=== PATIENT | female | born 1985 | race African-American/Black ===

== ENCOUNTER 2020-09-21 10:33 | Emergency (ER) | payer OTHER ==
[~2020-09-21 10:33] MED LIST: A/B OTIC OT; AMOXICILLIN875 MG OR; BACTROBAN2 % EX; CEPHALEXIN500 MG OR; LORTAB 5 OR; PREDNISONE50 MG PO; PROVENTIL0.083 % IN
[2020-09-21 12:01] VITALS: BP 108/74
[2020-09-21] MEDS ORDERED: ZPAK PO (12:48)
== END 2020-09-21 12:50 | disposition home or self-care (01) | DRG 179 ==
LOC: ED 10:33
DX: U07.1 COVID-19 (principal); J45.909 Unspecified asthma, uncomplicated; F17.200 Nicotine dependence, unspecified, uncomplicated

== ENCOUNTER 2020-09-29 12:02 | Emergency (ER) | payer OTHER ==
[~2020-09-29 12:02] MED LIST changes: +ZPAK PO
[2020-09-29 13:14] LABS: HEMATOCRIT 42.5 % (37.0-47.0); HEMOGLOBIN 13.5 g/dl (12.0-16.0); MEAN CELL VOLUME 97.7 fL CALC (80.0-100.0); MEAN CORPUSCULAR HGB CONC 31.8 g/dL CAL (32.0-36.0); NEUT# 1.51 thou/uL (2.00-7.15); RED BLOOD COUNT 4.35 mill/uL (4.20-5.60); RED CELL DISTRI WIDTH 11.8 % (11.5-15.5)
[2020-09-29 13:34] LABS: ALKALINE PHOSPHATASE 72 u/l (38-126); AMYLASE 86 u/l (30-110); BILIRUBIN, TOTAL 0.4 mg/dL (0.0-1.4); BUN 10 mg/dL (7-17); BUN/CREATININE RATIO 15 (12-20 (CALC)); CARBON DIOXIDE 23 mmol/l (22-30); CHLORIDE 104 mmol/l (95-108); CREATININE 0.7 mg/dL (0.5-1.0); GFR > 60 ML/MIN (>=60 (CALC)); GFR FOR AFR.AMER. > 60 ML/MIN (>=60 (CALC)); LIPASE 64 u/l (23-300); POTASSIUM 3.5 mmol/l (3.5-5.1); SGOT/AST 37 u/l (14-36); TOTAL PROTEIN 7.5 g/dL (6.3-8.2)
[2020-09-29 13:35] LABS: ALBUMIN 3.9 g/dL (3.2-5.0); ANION GAP 14 (6-22 (CALC)); SODIUM 137 mmol/l (137-146)
[2020-09-29 13:37] LABS: URINE BLOOD DIPSTICK NEGATIVE (NEGATIVE); URINE COLOR YELLOW; URINE GLUCOSE - DIPSTICK NEGATIVE (NEGATIVE); URINE KETONE TRACE mg/dL (NEGATIVE); URINE LEUK ESTERASE NEGATIVE (NEGATIVE); URINE PH 6.5 (4.5-8.0); URINE PROTEIN - DIPSTICK 100 mg/dL (NEG-TRACE); URINE SPECIFIC GRAVITY >=1.030
[2020-09-29 13:40] LABS: URINE BILIRUBIN - DIPSTICK SMALL (NEGATIVE); URINE NITRITE - DIPSTICK NEGATIVE (Negative)
[2020-09-29 13:47] LABS: URINE BACTERIA FEW hpf; URINE MUCUS MODERATE hpf (NONE-FEW); URINE SQUAMOUS EPITHELIAL CELL FEW EPI/hpf (0-FEW)
[2020-09-29] MEDS ORDERED: KEFLEX500 MG PO (14:01)
[2020-09-29] MEDS ORDERED: MEDDOSEPAK PO (14:26)
[2020-09-29 14:33] VITALS: BP 115/57
== END 2020-09-29 15:52 | disposition home or self-care (01) | DRG 178 ==
LOC: ED 12:02
PROVIDERS: Emergency Medicine
DX: U07.1 COVID-19 (principal); N39.0 Urinary tract infection, site not specified; J45.909 Unspecified asthma, uncomplicated; F17.200 Nicotine dependence, unspecified, uncomplicated